=== PATIENT | male | born 1980 | race Asian ===

== ENCOUNTER 2016-12-02 09:07 | Emergency (ER) | payer OTHER ==
[~2016-12-02] VITALS: Ht 180.3 cm; Wt 69.4 kg
== END 2016-12-02 11:44 | disposition home or self-care (01) ==
LOC: ED 09:07
DX: S16.1XXA Strain of muscle, fascia and tendon at neck level, initial encounter (principal); M79.602 Pain in left arm; R07.89 Other chest pain; M62.838 Other muscle spasm
CPT/HCPCS: 99281; J1885; J2930